=== PATIENT | female | born 1955 | race Caucasian/White ===

== ENCOUNTER 2021-05-06 10:00 | Outpatient (RCR) | payer MEDICARE, OTHER, SELFPAY ==
--- NOTE | 2021-03-18 10:47 | PTOPEVAL ---
PHYSICAL THERAPY EVALUATION AND PLAN OF CARE 03-18-21 Thank you for referring Mary White to [facility]. for the diagnosis of headache syndrome and lymphedema over head, face and neck. Mary is scheduled to be seen for therapy? 1 x/week for 8 weeks. Please review, sign, date and return this plan of care ROSEMARY. I agree with and certify that the following plan of care is medically necessary. Referring Physician Date Attending Provider: CARRIE Ordaz *PT Outpatient Evaluation F Document 03/18/21 09:35 REESE (Rec: 03/18/21 10:47 REESE [id number]) Past Medical History Source of Past Medical History Patient Neurological History Hx Other Neurological Disorders Yes: hit L side face,wearing glasses- fracture sphenoid, upper cheek Cardiovascular History Hx Cardiac Disorders No Significant History Respiratory History Hx Other Respiratory Disorders Yes: sinus and allergies Gastrointestinal History Hx Gastrointestinal Disorders No Significant History Genitourinary History Hx Genitourinary Disorders No Significant History Musculoskeletal History Hx Joint Replacement Yes: R THR Hx Other Musculoskeletal Disorders Yes: chronic headaches; neck pain and tightness Endocrine History Hx Endocrine Disorders No Significant History HEENT History Hx Other HEENT Disorders Yes: throat feels thick, congestion in neck and throat Integumentary History Hx Skin Disorders No Significant History Reproductive History Hx Other Reproductive Disorders Yes: R ovary removed Psychosocial History Hx Anxiety Yes: take meds Other History Hx Other Medical Conditions Yes: have not had covid vaccine Evaluation Information Problem Diagnosis headache syndrome Onset January 2021 Subjective Information gradual increase in pain and Query Text:As Reported By Patient/ headaches with weather getting Family warmer; have cranial therapy done every 3 weeks; 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
--- NOTE | 2021-06-01 15:01 | PCPTNOTE ---
PHYSICAL THERAPY DISCHARGE 06-01-21 Attending Provider: CARRIE Ordaz Patient:Mary White Date of :1955 Ms. White has not returned for any further treatments since 05/06/2021, therefore she will be discharged at this time. She received 5 PT sessions, from March 18 to May 06 for the diagnosis of lymphedema and headache syndrome. Then, she stopped attending therapy. The goals were not addressed. Thank you for referring Mary to [facility]. Please review, sign, date and return this discharge summary ROSEMARY. I have been updated about the patient's current status and I agree with discharge from the above service at this time. Referring Physician Date
== END 2021-06-02 12:16 | disposition home or self-care (01) ==
LOC: ANHPT 10:00
PROVIDERS: PCP Nurse Practitioner Psychiatric/Mental Health; Visit Provider Nurse Practitioner Psychiatric/Mental Health
DX: G44.89 Other headache syndrome (principal)
CPT/HCPCS: 97140; 97161